=== PATIENT | female | born 1980 | race Hispanic/Latino ===

== ENCOUNTER 2018-07-27 10:53 | Observation (INO) | payer OTHER ==
--- NOTE | 2018-07-27 11:44 | ED PDOC ---
HPI: Female Pain Time Seen by Provider: 07/27/18 11:18 Chief Complaint (Nursing): Female Genitourinary History Per: Patient Onset/Duration Of Symptoms: Days (4) Current Symptoms Are (Timing): Still Present Severity: Mild Quality Of Discomfort: Cramping Associated Symptoms: denies: Fever Alleviating Factors: None Additional Complaint(s): LOwer abd cramping assoc with vaginal spotting. LMP April 29. Followed by PMD with US 4 days ago and beta HCG Abnormal Vaginal Bleeding: Yes Past Medical History Vital Signs: Last Vital Signs Temp 120 F H 07/27/18 11:30 Pulse Resp BP Pulse Ox - Medical History PMH: No Chronic Diseases - Family History Family History: States: Unknown Family Hx - Allergies Allergies/Adverse Reactions: Allergies Allergy/AdvReac Type Severity Reaction Status Date / Time No Known Allergies Allergy Verified 07/27/18 11:30 Review of Systems Gastrointestinal: Positive for: Abdominal Pain Genitourinary Female: Positive for: Vaginal Bleeding Physical Exam - Physical Exam Appears: Positive for: Non-toxic, No Acute Distress Skin: Positive for: Normal Color, Warm, DRY Gastrointestinal/Abdominal: Positive for: Bowel Sounds, Soft. Negative for: Tenderness Pelvic Exam: Positive for: External Exam Normal, Blood (scant). Negative for: Mass, Tender Adnexa, Tender Uterus - Laboratory Results Result Diagrams: 07/27/18 12:35 07/27/18 12:35 Disposition - Clinical Impression Clinical Impression: demise - Patient ED Disposition Is Patient to be Admitted: Yes - Disposition Disposition Time: 16:10 Condition: FAIR Forms: [facility] (Mosotho) - Pt Status Changed To: Hospital Disposition Of: Observation - POA Present On Arrival: None
[2018-07-27 12:45] LABS: BASO % 0.4 % (0.0-2.0); EOS # 0.1 K/uL (0.0-0.7); EOS % 1.8 % (0.0-4.0); HEMOGLOBIN 13.9 g/dL (12.0-16.0); LYMPH # 1.7 K/uL (1.0-4.3); LYMPH % 23.8 % (20.0-40.0); MEAN CELL VOLUME 85.6 fl (81.0-99.0); MEAN CORPUSCULAR HEMOGLOBIN 29.2 pg (27.0-31.0); MEAN CORPUSCULAR HGB CONC 34.1 g/dL (33.0-37.0); MEAN PLATELET VOLUME 7.8 fl (7.2-11.7); MONO # 0.5 K/uL (0.0-0.8); MONO % 6.4 % (0.0-10.0); NEUT # 4.8 K/uL (1.8-7.0); NEUT % 67.6 % (50.0-75.0); RBC 4.75 Mil/uL (3.80-5.20); RED CELL DISTRIBUTION WIDTH 12.9 % (11.5-14.5); WHITE BLOOD COUNT 7.1 K/uL (4.8-10.8)
[2018-07-27 12:59] LABS: ALB/GLOB RATIO 1.3 (1.0-2.1); ALBUMIN 4.5 g/dL (3.5-5.0); ALT/SGPT 25 U/L (9-52); AST/SGOT 24 U/L (14-36); BLOOD UREA NITROGEN 11 mg/dl (7-17); CALCIUM 9.7 mg/dL (8.4-10.2); GFR NON-AFRICAN AMERICAN > 60
--- NOTE | 2018-07-27 12:59 | US ---
Date of service: 07/27/2018 HISTORY: r/o ectopic COMPARISON: No prior study available for comparison. TECHNIQUE: Transvaginal sonographic evaluation of pelvis performed. FINDINGS: UTERUS: Measures 9.6 x 5.7 x 7.4 cm. Normal in size and appearance. No fibroid or other mass lesion seen. ENDOMETRIUM: There is a single intrauterine gestation which demonstrates no heart rate; findings may be secondary to demise.. Gestational sac: MSD = 4.0 = 9 weeks 2 days Yolk sac: Not seen pole: CRL = 1.39 cm = 7 weeks 5 days Heart motion: Not detected Average ultrasound age: 8 weeks 4 days +/-0 weeks 4 days DIMA: 03/04/2019 CERVIX: Cervix appears closed measuring approximate 2.9 cm. Suspect small cervical nabothian cyst. RIGHT OVARY: Measures 2.7 x 1.9 x 2.8 cm. No solid mass. Normal flow. LEFT OVARY: Measures 2.2 x 1.7 x 1.9 cm. No solid mass. Normal flow. . There is a small cyst that measures 0.9 x 0.7 x 0.8 cm. FREE FLUID: No significant free fluid noted. OTHER FINDINGS: None. IMPRESSION: There is a single intrauterine gestation that demonstrates no heart rate estimated at approximately 8 weeks 4 days +/-0 weeks 4 days. Findings likely represent demise however clinical correlation and [employer] INST[employer]ER consultation recommended.
[2018-07-27] MEDS ORDERED: OXYTOCIN/0.9 % NS 20 UNIT/1,000 ML BAG IV ONE (16:47)
[2018-07-27] MEDS ORDERED: Ferric Subsulfate Sol(60 mL) ONE (16:48)
[2018-07-27] MEDS ORDERED: cefOXitin IV 1 gm in Dextrose 1 GM/50 ML BAG IVPB ONE (16:48)
[2018-07-27] MEDS ORDERED: Midazolam 2 MG/2 ML VIAL ONE (17:12)
[2018-07-27] MEDS ORDERED: Propofol 10 mg/ml Inj (20 ML) ONE (17:12)
--- NOTE | 2018-07-27 17:23 | CP.SDSHP ---
Same Day Surgery H & P - History Proposed Procedure: D/C Pre-Op Diagnosis: Miscarriage ( missed with vaginal bleeding and cramps ) - Previous Medical/Surgical History Misc: Pain: 4.Moderate Pain Previous Surgical History: TOP - Allergies Allergies: Allergies No Known Allergies Allergy (Verified 07/27/18 11:30) - Physical Exam General Appearance: NAD, well nourished Vital Signs: Vital Signs 07/27/18 07/27/18 07/27/18 11:30 11:49 17:17 Temperature 120 F H 98 F 98 F Pulse Rate 58 L 60 Respiratory 16 16 Rate Blood Pressure 114/68 116/64 O2 Sat by Pulse 100 Oximetry 07/27/18 17:19 Temperature 98 F Pulse Rate 60 Respiratory 16 Rate Blood Pressure 116/64 O2 Sat by Pulse 98 Oximetry Mental Status: Alert & Oriented x3 Neuro: WNL Heart: WNL Lungs: WNL GI: WNL - {Optional Preform as Required} Abdomen: WNL Rectal: WNL 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
[2018-07-27] MEDS ORDERED: Lactated Ringer's 1,000 ML IV ONE (17:30)
[2018-07-27] MEDS ORDERED: Oxycodone/Acetaminophen 5/325 mg Tab PO PRN (18:07)
[2018-07-27] MEDS ORDERED: Lactated Ringer's 1,000 ML IV SCH (18:15)
[2018-07-27] MEDS ORDERED: OXYTOCIN/0.9 % NS 20 UNIT/1,000 ML BAG IV SCH (18:15)
--- NOTE | 2018-07-27 18:18 | CP.SDSHP ---
Same Day Surgery H & P - Allergies Allergies: Allergies No Known Allergies Allergy (Verified 07/27/18 11:30) - Physical Exam Vital Signs: Vital Signs 07/27/18 07/27/18 07/27/18 11:30 11:49 17:17 Temperature 120 F H 98 F 98 F Pulse Rate 58 L 60 Respiratory 16 16 Rate Blood Pressure 114/68 116/64 O2 Sat by Pulse 100 Oximetry 07/27/18 17:19 Temperature 98 F Pulse Rate 60 Respiratory 16 Rate Blood Pressure 116/64 O2 Sat by Pulse 98 Oximetry Short Stay Discharge - Short Stay Discharge Admitting Diagnosis/Reason for Visit: DEMISE Follow-up: 1wk Additional Instructions (Diet, Activity): pelvic and bed rest Appt to office 1 wk Progress Note/Discharge Note with Instructions: tolerated procedure well no complications Recovered well Discussed with pt findings and instructions given Rhogam given in RR Also rx for Percocet given
[2018-07-27 19:29] VITALS: O2SAT 100
[2018-07-27 20:30] VITALS: BP 101/64; PULSE 66; RESP 18; TEMP 97.9
--- NOTE | 2018-07-29 00:39 | OP ---
PROCEDURE DATE: 07/27/2018 PREOPERATIVE DIAGNOSES: 1. Missed . 2. Vaginal bleeding with cramps. POSTOPERATIVE DIAGNOSES: 1. Missed . 2. Vaginal bleeding with cramps. PROCEDURE PERFORMED: Suction,dilatation, and curettage. SURGEON: Reagan Houser MD ANESTHESIA USED: General. ANESTHESIOLOGIST: Dr. Childress. ESTIMATED BLOOD LOSS: 100 mL. DRAINS USED: None. REPLACEMENT USED: None. FINDINGS: 1. Cervix appears fingertip, soft, bleeding per os. 2. Uterus is mobile about 10 weeks' size and moves to palpation. 3. No adnexal masses to palpation bilaterally. 4. Suction, dilatation, and curettage performed using a #7 and #9 plastic cannula without any complications. Large amount of tissue obtained and sent to pathology. DESCRIPTION OF PROCEDURE: The patient was taken to the operating room and placed on the operating table in a supine position. Following induction of general anesthesia, the patient was then replaced in a dorsal lithotomy position. Perineal and genital areas were draped and prepped in a usual sterile manner. At this time, sterile catheter was then placed into the bladder, clear fluid was then evacuated from the bladder and the patient was then examined under anesthesia with some of the above findings. A heavy weighted speculum was then placed in the posterior wall of the vagina exposing the cervix. The anterior lip of the cervix was then grasped using a single tooth tenaculum and retracted superiorly. At this time, using Nico dilator cervical area was then dilated and using a #7 plastic cannula, curettage was then performed. Moderate amount of tissue was obtained. At this time, more tissue appears to be inside the uterus and a #9 plastic cannula was then introduced and suction curettage was again performed removing more necrotic-appearing tissue. Following this, the uterus was massaged, contracted well. The uterine cavity was then gently curetted using sharp curettage to ensure no tissue left there. Again, the tissue was sent to pathology and the uterus was contracted well. Single tooth tenaculum removed. No bleeding noted. Sponge,and lap, pad counts were correct x3 and instruments count correct x3. The patient tolerated the procedure well. There were no complications. She was transferred to the recovery room in satisfactory condition. Reagan Houser MD [facility] # [id number]
== END 2018-07-27 21:45 | disposition home or self-care (01) ==
LOC: H.ER 10:53 → H.ERHOLD 16:10 → H.MEDSURG1 20:24
PROVIDERS: ADMIT Specialist; ATTEND Specialist
DX: O02.1 Missed abortion (principal)
CPT/HCPCS: 59820; 76817; 80053; 84702; 85025; 86850; 86900; 99284; G0378; J0694; J1170; J1885; J2001; J2250; J2405; J2590; J2704; J2765; J2792; J3010; J7120